=== PATIENT | female | born 1975 | race Hispanic/Latino ===

== ENCOUNTER 2025-10-07 21:14 | Emergency (ER) | payer BC, OTHER ==
[~2025-10-07] VITALS: Ht 152.4 cm; Wt 97.5 kg
[2025-10-07] MEDS: 0.9%NACL 1000ML 1,000 ML IV ONE (21:57)
[2025-10-07] MEDS: FAMOTIDINE 20MG VIAL IV ONE (21:57)
--- NOTE | 2025-10-07 23:17 | ERN ---
ED Note History of Present Illness Stated Complaint: HEADACHE W/NAUSEA W/RASH AND ITCHING AFTER OZEMPIC Chief Complaint: Skin Rash/Abscess Time Seen by MD: 21:19 Time Seen by Midlevel: 21:19 Dictation: The patient is an 49-year female who presents to the emergency department with complains of generalized itchiness, headache and nausea after taking ozempic. Patient reports that she has taken in the past but had not taken it for a while. Reports she usually gets nausea with it but never had itchiness. Patient denies any fevers, cough, abd pain or any other associated symptoms. Allergies: Coded Allergies: No Known Allergies (Unverified Allergy, Unknown, 10/07/25) Past Medical History Past Medical History: Diabetes-Type II, Hypertension Surgical History: RN Note Reviewed/Agreed w/PFSH: Yes Review of System Dictation Constitutional: Negative for fever,chills, and weight loss Eyes: Negative for injury, pain,redness, and discharge ENT: Negative for injury,pain or swelling Cardiovascular: Negative for chest pain, palpitations, and edema Respiratory: Negative for shortness of breath, cough, and wheezing, Abdomen/GI: Negative for abdominal pain, , vomiting, diarrhea, and constipation positive for nausea Back: Negative for injury and pain : Negative for injury, bleeding and discharge MS/Extremity: Negative for injury and deformity Skin: Negative for rash, and discoloration positive for itchiness Neuro: Negative for , weakness, numbness, tingling, and seizure positive for headache Psych: Negative for suicide ideation, homicidal ideation, and hallucinations Initial Vital Sign VS Vital Signs Date Time Temp Pulse Resp B/P (MAP) Pulse Ox O2 Delivery O2 Flow Rate FiO2 10/07/25 21:18 97.5 78 18 194/91 96 Room Air 10/07/25 23:40 0 21 Physical Exam Dictation Vital Signs reviewed General Appearance: Alert, oriented x 3, no acute distress, well developed, nourished. Head and Face: non-traumatic. Eyes: PERRL, pink conjunctivas, eyelid no trauma, anterior chamber with arcus senilis. Ears: Pinnas intact and no signs of trauma or erythema ear canals clear and no discharge TM no erythema Nose: No discharge, no bleeding. Oropharynx: Mouth normal, tongue pink. no tongue swelling, pharynx clear,no erythema, tonsils no exudates, no abscesses noted, mucous membrane moist Neck: Supple, non-tender, no thyromegaly, no masses, no JVD, no bruits Breast:Deferred Chest:No tenderness, no crepitus, no paradoxical movement, no retractions Lungs:Clear, well-ventilated, symmetric, no rales, no wheezing, no rhonchi, no stridor, good breath sounds bilaterally Heart: Regular rate, regular rhythm, no murmur, no gallops Vascular: no peripheral edema, Abdomen: Soft, positive bowel sounds, nondistended, no guarding, nontender, no rebound, no masses no hepatomegaly, no splenomegaly, no Phipps's sign, no hernias. Rectal: Deferred Genital: Deferred Neurological: Normal speech, motor function intact, sensory function intact , upper extremities equal in strength, lower extremities equal in strength, no facial droop, no slurred speech. Musculoskeletal: Neck nontender, full range of motion, back nontender, full range of motion, Extremities: nontender, full range of motion Skin: Color pink, dry, no turgor, no lacerations, no abrasions, no contusions. mild hives noted to chest, arms, and back. Lymphatic: Deferred Results (Laboratory/Radiology) Labs Reviewed?: Yes ED Course ED Course Orders Procedure Category Date Status Time Diphenhydramine Hcl PHA 10/07/25 Complete (Benadryl Inj) 22:00 0.9%Nacl 1000ml (Ns PHA 10/07/25 Complete 1000ml) 22:00 Famotidine 20mg Vial PHA 10/07/25 Complete (Pepcid 20mg Vial) 22:00 Methylprednisolone PHA 10/07/25 Complete Succ 125mg (Solu-Medr 22:00 Acetaminophen 500mg PHA 10/07/25 Complete Tab (Tylenol 500mg T 22:00 Ondansetron 4mg Inj PHA 10/07/25 Complete (Zofran 4mg Inj) 22:00 Metoclopramide 10 PHA 10/07/25 Complete Mg/2 Ml Vial (Reglan 1 23:30 Current Medications Medications (Trade) Dose Ordered Sig/Morena Route PRN Reason Start Time Stop Time Status Last Admin Dose Admin Acetaminophen (TYLenol 500MG TAB) 1,000 mg ONCE ONCE PO 10/07/25 22:00 10/07/25 22:01 DC 10/07/25 21:57 Diphenhydramine HCl (BENAdryl INJ) 25 mg ONCE ONCE IV 10/07/25 22:00 10/07/25 22:01 DC 10/07/25 21:57 Famotidine (Pepcid 20mg Vial) 20 mg ONCE ONCE IV 10/07/25 22:00 10/07/25 22:01 DC 10/07/25 21:57 Methylprednisolone Sodium Succinate (Solu-medROL 125MG) 125 mg ONCE ONCE IVP 10/07/25 22:00 10/07/25 22:01 DC 10/07/25 21:57 Metoclopramide HCl (regLAN 10MG IV) 5 mg ONCE ONCE IVP 10/07/25 23:30 10/07/25 23:31 DC 10/07/25 23:18 Ondansetron HCl (zoFRAN 4MG INJ) 4 mg ONCE ONCE IVP 10/07/25 22:00 10/07/25 22:05 DC 10/07/25 22:17 Sodium Chloride 1,000 ml @ 0 mls/hr ONCE ONCE IV 10/07/25 22:00 10/07/25 22:01 DC 10/07/25 21:57 Vital Signs Date Time Temp Pulse Resp B/P (MAP) Pulse Ox O2 Delivery O2 Flow Rate FiO2 10/07/25 23:40 97.5 84 18 155/88 97 Room Air* 0 21 10/07/25 21:18 97.5 78 18 194/91 96 Room Air Medical Decision Making MDM The patient is an 49-year female who presents to the emergency department with complains of generalized itchiness, headache and nausea after taking ozempic. Patient reports that she has taken in the past but had not taken it for a while. Reports she usually gets nausea with it but never had itchiness. Patient denies any fevers, cough, abd pain or any other associated symptoms. Patient reports feeling better after medications. Reports her itchiness and headache went away. On physical exam patient is in no acute distress, nontoxic appearance, clear lung sounds, patient is neurologically intact. Patient will be discharged to follow up with PCP. Patient good have an allergy to so big and instructed to follow up with PCP for evaluation. Differential diagnosis: Allergic reaction, medication side effect, headache Need for hospitalization: Patient does not meet criteria for hospitalization. There are no social concerns with this patient. DX & DISP Disposition: Discharge Departure Impression: Primary Impression: Acute urticaria Additional Impression: Medication side effect Condition: Stable Scripts Ondansetron (Ondansetron Odt) 4 Mg Tab.rapdis 4 MG PO Q6HPRN PRN for nausea, #16 TAB 0 Refills Prov: JOYCE LONICK SALAZAR 10/07/25 Famotidine (Pepcid) 20 Mg Tablet 1 TAB PO BID for 10 Days, #60 TAB 0 Refills Prov: LOCIPRIANO SALAZAR 10/07/25 Diphenhydramine HCl (Benadryl) 50 Mg Cap 50 MG PO Q6H for itching/rash, #20 CAP 0 Refills Prov: CIPRIANO LO 10/07/25 Additional Instructions: Please follow up with your PCP in 1-2 days. Take medications as prescribe. Avoid any know allergens. If symptoms worsen please return to ER. FOLLOW-UP WITH PRIMARY CARE PROVIDER IN 1 TO 2 DAYS. TAKE MEDICATIONS DIRECTED HERE IN THE EMERGENCY ROOM. OKAY TO CONTINUE HOME MEDICATIONS UNLESS OTHERWISE DISCUSSED DURING YOUR VISIT IN THE EMERGENCY ROOM TODAY. RETURN TO YOUR NEAREST EMERGENCY ROOM IF SYMPTOMS WORSEN OR IF THERE IS NO IMPROVEMENT. CALL 911 IF YOU NEED IMMEDIATE ASSISTANCE. TAKE TYLENOL [id number] NEEDED AND IF NO CONTRAINDICATIONS ARE PRESENT. INCREASE ORAL HYDRATION. A WOUND CULTURE OR URINE CULTURE WAS ORDERED HERE IN THE EMERGENCY ROOM DEPARTMENT PLEASE FOLLOW-UP WITH PRIMARY CARE PROVIDER AND ADVISE THEM TO GET REPEAT PORTS FROM OUR FACILITY. IF YOU HAD ANY SAL WRAP/SPLINTS THAT WERE APPLIED HERE, PLEASE DO NOT REMOVE THEM UNTIL YOU SEE YOUR PRIMARY CARE OR SPECIALTY. Referrals: SELF,REFERRAL (PCP) Time of Disposition: 23:46 I have reviewed the case, and I agree with, Diagnosis and Plan WALLYCIPRIANO SALAZAR Oct 07, 2025 23:17
[2025-10-07 23:40] VITALS: BP 155/88; PULSE 84; RESP 18; TEMP 97.6; O2SAT 97
[2025-10-07] MEDS ORDERED: ONDA-243 PO (23:47)
[2025-10-07] MEDS ORDERED: FAMO-136 PO (23:47)
[2025-10-07] MEDS ORDERED: DIPH50CA38 PO (23:47)
== END 2025-10-08 00:03 | disposition home or self-care (01) ==
LOC: EDH 21:14
DX: L50.9 Urticaria, unspecified (principal); T50.995A Adverse effect of other drugs, medicaments and biological substances, initial encounter; R51.9 Headache, unspecified; R11.0 Nausea; E11.9 Type 2 diabetes mellitus without complications; I10 Essential (primary) hypertension; Y92.89 Other specified places as the place of occurrence of the external cause
CPT/HCPCS: 99284; 96374; 96375; J2919; J1200; J1308; J7030; J2405; J2765